=== PATIENT | female | born 1935 | race Caucasian/White ===

== ENCOUNTER → 2017-04-14 | Outpatient (CLI) | payer OTHER, MEDICAID | LOC: BHFA 14:45 | PROVIDERS: ATTEND Internal Medicine Cardiovascular Disease | DX: I63.9 Cerebral infarction, unspecified (principal); I51.3 Intracardiac thrombosis, not elsewhere classified ==

== ENCOUNTER → 2017-04-21 | Outpatient (CLI) | payer OTHER, MEDICAID | LOC: BHFA 10:45 | PROVIDERS: ATTEND Internal Medicine Cardiovascular Disease | DX: I51.3 Intracardiac thrombosis, not elsewhere classified (principal) ==

== ENCOUNTER 2017-04-23 14:35 | Emergency (ER) | payer OTHER, MEDICAID ==
[2017-04-23 14:54] VITALS: RESP 18
--- NOTE | 2017-04-23 15:33 | EDPHY ---
H & P Stated Complaint: sent from Dr. Dee for urinary retention and bloating Time Seen by Provider: 04/23/17 14:38 HPI/ROS: CHIEF COMPLAINT: Decreased urination HISTORY OF PRESENT ILLNESS: This is an 81-year-old female referred to the emergency department from Dr. Brock's office where she was undergoing a routine office visit, reviewing the report of her recent echocardiogram (which showed an intracardiac thrombus). She has a history of CVA on 03/13/2017. At that time she was initially evaluated at [facility] and transferred to [facility]. From there she went to [facility] for rehabilitation. She has now been home for almost 2 weeks. For the last few days she has had decreased urination. She denies abdominal pain or fever. She has not had flank or back pain. She did have a urinary tract infection while at [facility] and her daughter tells me that she had renal problems during her recent hospitalization and was treated with IV hydration. REVIEW OF SYSTEMS: A ten point review of systems was performed and is negative with the exception of the items mentioned in the HPI. Past medical history: 1. CVA 03/13/2017 2. Intracranial aneurysm noted on CT 3. Coronary artery disease status post coronary artery stenting and myocardial infarction x2 4. Past surgical history: Family history: Social history: She lives alone with her cat more right eye. She does not use tobacco or alcohol products. Her daughter accompanies her today. General Appearance: Alert. Vital signs reviewed. Blood pressure 100/52, heart rate 58 at triage. Afebrile. Eyes: Pupils equal and round, no conjunctival injection, no discharge. Anicteric. ENT, Mouth: Mucous membranes are moist, no oropharyngeal erythema or edema. Neck: No lymphadenopathy, supple. Respiratory: Lungs with crackles at the bases bilaterally. No wheezes. Cardiovascular: Bradycardic and regular; no murmur, rub, or gallop. Gastrointestinal: Abdomen is soft and nontender, no masses or organomegaly, bowel sounds normal. No abdominal distention. Skin: Warm and dry, no rashes on exposed skin, normal color. Back: Nontender to palpation over the thoracolumbar spine. No CVAT. Extremities: No lower extremity edema, no calf tenderness or swelling. Neurological: Alert and oriented. Moving all four extremities easily and equally. Psychiatric: Normal affect. 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, campartment syndrom 2011, TIA 2006, CAD, Multiple Stents, HTN - Social History Smoking Status: Current every day smoker Constitutional: Initial Vital Signs Temperature (C) 37.2 C 04/23/17 14:51 Heart Rate 58 L 04/23/17 14:51 Respiratory Rate 18 04/23/17 14:51 Blood Pressure 100/52 L 04/23/17 14:51 O2 Sat (%) 91 L 04/23/17 14:51 O2 Delivery Mode Nasal Cannula O2 (L/minute) 2 Allergies/Adverse Reactions: No Known Allergies Allergy (Unverified 04/27/16 11:39) Home Medications: Medication Instructions Recorded Clopidogrel Bisulfate [Plavix (*)] 75 mg PO DAILY 04/27/16 Escitalopram Oxalate [Lexapro] 20 mg PO DAILY 04/27/16 Fondaparinux Sodium [Arixtra 2.5 2.5 mg SC DAILY 04/27/16 MG (*)] Herbals/Supplements -Info Only 1 ea PO DAILY 04/27/16 Lisinopril [Zestril 20 mg (*)] 20 mg PO BID 04/27/16 Nebivolol HCl [Bystolic] 2.5 mg PO DAILY 04/27/16 Omeprazole 40 mg PO BIDAC 04/27/16 Rosuvastatin Calcium [Crestor 40mg 40 mg PO DAILY 04/27/16 (*)] lamOTRIGine [Lamotrigine] 200 mg PO DAILY 04/27/16 Famotidine [Pepcid 20 MG (*)] 20 mg PO BID #0 tab 04/28/16 Medical Decision Making ED Course/Re-evaluation: Christensen catheter was placed for presumed urinary retention. She had less than 300 mLs out. Urinalysis shows 3+ bacteria, some renal epithelial cells and hyaline casts %period% creatinine is 1.3, the remainder of her chemistries are normal. CBC is normal. She is not febrile. She did not have abdominal or flank pain on exam. I did not appreciate abdominal distention. I do not think that she had urinary retention. It is not clear to me why she is urinating less than usual, and less she is not taking in enough. She tells me that she does not drink much water. Previous creatinine has been 1.2so I think that today's value of 1.3 is in line with that. However the presence of hyaline casts and renal epithelial cells might need further evaluation--she sees a primary care physician in [place] and might require a nephrology referral. I will leave this up to her primary care physician. I do not suspect the urinary tract infection or pyelonephritis. Urine is being sent for culture. Both the patient and her daughter are comfortable with her returning home. They have a list-of hospice facilities-they expressed an interest in hospice care. The daughter would like her mother to have a higher level care but her mother wants to remain independent at home. They will need to investigate options and work this out. I spoke with the patient about her falls and stressed the danger of falling when she is on anticoagulation. I recommended that she get a lifeline. I have spoken with Dr. Brock about today's findings. He is comfortable with her returning home. - Data Points Laboratory Results: Laboratory Results 04/23/17 15:50 04/23/17 15:50 04/23/17 04/23/17 04/23/17 15:50 15:50 15:45 WBC 6.60 10^3/uL 10^3/uL (3.80-9.50) RBC 4.33 10^6/uL 10^6/uL (4.18-5.33) Hgb 13.2 g/dL g/dL (12.6-16.3) Hct 40.5 % % (38.0-47.0) MCV 93.5 fL fL (81.5-99.8) MCH 30.5 pg pg (27.9-34.1) MCHC 32.6 g/dL g/dL (32.4-36.7) RDW 12.5 % % (11.5-15.2) Plt Count 209 10^3/uL 10^3/uL (150-400) MPV 9.4 fL fL (8.7-11.7) Neut % (Auto) 48.7 % % (39.3-74.2) Lymph % (Auto) 38.3 % % (15.0-45.0) [place] % (Auto) 9.1 % % (4.5-13.0) Eos % (Auto) 2.6 % % (0.6-7.6) Baso % (Auto) 0.8 % % (0.3-1.7) Nucleat RBC Rel Count 0.0 % % (0.0-0.2) Absolute Neuts (auto) 3.22 10^3/uL 10^3/uL (1.70-6.50) Absolute Lymphs (auto) 2.53 10^3/uL 10^3/uL (1.00-3.00) Absolute Monos (auto) 0.60 10^3/uL 10^3/uL (0.30-0.80) Absolute Eos (auto) 0.17 10^3/uL 10^3/uL (0.03-0.40) Absolute Basos (auto) 0.05 10^3/uL 10^3/uL (0.02-0.10) Absolute Nucleated RBC 0.00 10^3/uL 10^3/uL (0-0.01) Immature Gran % 0.5 % % (0.0-1.1) Immature Gran # 0.03 10^3/uL 10^3/uL (0.00-0.10) Sodium 143 mEq/L mEq/L (134-144) Potassium 4.3 mEq/L mEq/L (3.5-5.2) Chloride 105 mEq/L mEq/L (97-110) Carbon Dioxide 28 mEq/l mEq/l (22-31) Anion Gap 10 mEq/L mEq/L (8-16) BUN 18 mg/dL mg/dL (7-23) Creatinine 1.3 mg/dL H mg/dL (0.6-1.0) Estimated GFR 39 Glucose 91 mg/dL mg/dL (70-100) Calcium 8.7 mg/dL mg/dL (8.5-10.4) Urine Color YELLOW Urine Appearance HAZY Urine pH 5.0 (5.0-7.5) Ur Specific [place] 1.025 (1.002-1.030) Urine Protein NEGATIVE (NEGATIVE) Urine Ketones NEGATIVE (NEGATIVE) Urine Blood NEGATIVE (NEGATIVE) Urine Nitrate NEGATIVE (NEGATIVE) Urine Bilirubin NEGATIVE (NEGATIVE) Urine Urobilinogen 0.2 EU EU (0.2-1.0) Ur Leukocyte Esterase NEGATIVE (NEGATIVE) Urine RBC OCCASIONAL /hpf /hpf (0-3) Urine WBC OCCASIONAL /hpf /hpf (0-3) Ur Epithelial Cells TRACE /lpf /lpf (NONE-1+) Ur Renal Epithelial Cell OCCASIONAL /hpf H /hpf (NONE SEEN) Urine Bacteria 3+ /hpf H /hpf (NONE SEEN) Hyaline Casts 3-5 /lpf H /lpf (0-1) Urine Mucus 1+ /lpf /lpf (NONE-1+) Urine Glucose NEGATIVE (NEGATIVE) Departure - Departure Disposition: Home, Routine, Self-Care Clinical Impression: Elevated serum creatinine Condition: Good Instructions: Acute Urinary Retention in Women (ED) Additional Instructions: I am giving you information about urinary retention although this is not what you turned out to have today. However, this is what everyone was initially concerned with. As we discussed, I am not finding convincing evidence of urinary tract infection today. If you develop fever, increased urination, pain with urination , difficulty urinating in any way--you should be re-evaluated. I also recommend that you follow up with your primary care physician concerning your decreased urination. Today's creatinine level was 1.3 with a normal BUN. She might want this information. Please use her walker at all times. It is very dangerous few to fall you're taking blood thinning medication. I also recommend that you look into a Life Line. Referrals: Ted Brock MD [Primary Care Provider] - As per Instructions
[2017-04-23 15:49] LABS: COLOR YELLOW; LEUKOCYTE ESTERASE,URINE NEGATIVE (NEGATIVE); NITRITE,URINE NEGATIVE (NEGATIVE)
[2017-04-23 15:55] LABS: % IMMATURE GRANULYOCYTES 0.5 % (0.0-1.1); ABSOLUTE IMMATURE GRANULOCYTES 0.03 10^3/uL (0.00-0.10); ADD DIFF? NO; ADD MORPH? NO; ADD SCAN? NO; ATYPICAL LYMPHOCYTE FLAG 0 (0-99); FRAGMENT RBC FLAG 0 (0-99); HEMATOCRIT 40.5 % (38.0-47.0); HEMOGLOBIN 13.2 g/dL (12.6-16.3); LEFT SHIFT FLG 0 (0-99); LIPEMIA HEMOLYSIS FLAG 80 (0-99); MEAN CELL HEMOGLOBIN 30.5 pg (27.9-34.1); MEAN CELL HEMOGLOBIN CONCENTR. 32.6 g/dL (32.4-36.7); MEAN CELL VOLUME 93.5 fL (81.5-99.8); MEAN PLATELET VOLUME 9.4 fL (8.7-11.7); PLATELET CLUMPS FLAG 0 (0-99); PLATELET COUNT 209 10^3/uL (150-400); RED BLOOD CELL COUNT 4.33 10^6/uL (4.18-5.33); RED CELL DISTRIBUTION WIDTH 12.5 % (11.5-15.2)
[2017-04-23 16:01] LABS: WBC,URINE OCCASIONAL /hpf (0-3)
[2017-04-23 16:02] LABS: BACTERIA 3+ /hpf (NONE SEEN); MUCUS 1+ /lpf (NONE-1+); RBC,URINE OCCASIONAL /hpf (0-3); RENAL EPITHELIAL CELLS OCCASIONAL /hpf (NONE SEEN)
[2017-04-23 16:06] LABS: CALCIUM 8.7 mg/dL (8.5-10.4); CREATININE 1.3 mg/dL (0.6-1.0); POTASSIUM 4.3 mEq/L (3.5-5.2)
[2017-04-23 17:22] VITALS: BP 118/68; PULSE 57; TEMP 98.2; O2SAT 94
== END 2017-04-23 17:10 | disposition home or self-care (01) ==
LOC: CED 14:35
PROC: 0T9B70Z Drainage of Bladder with Drainage Device, Via Natural or Artificial Opening (ICD-10-PCS; principal; 2017-04-23)
DX: R79.89 Other specified abnormal findings of blood chemistry (principal); I25.2 Old myocardial infarction; I25.10 Atherosclerotic heart disease of native coronary artery without angina pectoris; I10 Essential (primary) hypertension; F17.200 Nicotine dependence, unspecified, uncomplicated; Z95.5 Presence of coronary angioplasty implant and graft
CPT/HCPCS: 80048-PO; 81003-PO; 81015-PO; 85025-PO